=== PATIENT | male | born 1965 | race Caucasian/White ===

== ENCOUNTER 2018-01-01 19:45 | Emergency (ER) | payer BC, OTHER | END 2018-01-01 21:34 | disposition left against medical advice (07) | LOC: DL.ED 19:45 | DX: Z53.21 Procedure and treatment not carried out due to patient leaving prior to being seen by health care provider (principal) ==

== ENCOUNTER 2018-01-02 07:02 | Emergency (ER) | payer BC, OTHER ==
[2018-01-02 08:22] LABS: ANION GAP 13.9
[2018-01-02 09:01] VITALS: BP 107/54
--- NOTE | 2018-01-02 10:00 | EDM.PDOC ---
ED HPI GENERAL MEDICAL PROBLEM - General Chief Complaint: Lower Extremity Injury/Pain Stated Complaint: LEG SWOLLEN [id number] Time Seen by Provider: 01/02/18 07:36 Source of Information: Reports: Patient, RN, RN Notes Reviewed History Limitations: Reports: No Limitations - History of Present Illness INITIAL COMMENTS - FREE TEXT/NARRATIVE: Pt to Er with c/o right leg swelling, warmth, and pain. He states he had a cortisone shot to right knee about 1 month ago. Swelling and redness began after the shot. He was seen in the clinic and an ultrasound was done which was found to be negative. Pain goes up into his groin and hip on the right leg. He states throbbing pain to the right foot. Rates pain 6/10. Admits to fever, chills, diarrhea. Denies N/V, CP, SOB. Onset: Gradual Right Leg Pain Score (Numeric/FACES): 6 - Related Data Allergies Allergy/AdvReac Type Severity Reaction Status Date / Time lisinopril Allergy Cannot Verified 01/02/18 07:11 Remember Home Meds: Home Meds Albuterol Sulfate [Albuterol Sulfate HFA] PRN 08/17/13 [History] Aspirin [Low Dose Aspirin EC] 81 mg PO 08/17/13 [History] Cromolyn Sodium 26 ml NS PRN 08/17/13 [History] Fexofenadine [Penny] 180 mg PO PRN 08/17/13 [History] Fluticasone Propionate 16 gm NS PRN 08/17/13 [History] Ibuprofen 800 mg PO PRN 08/17/13 [History] Insulin Detemir [Levemir] 50 unit SQ 08/17/13 [History] Losartan [Cozaar] 100 mg PO DAILY 08/17/13 [History] Minocycline [Minocin] 100 mg PO BID 08/17/13 [History] Mometasone/Formoterol [Dulera 100 Mcg/5 Mcg Inhaler] 8.8 gm IH PRN 08/17/13 [ History] Montelukast [Singulair] 10 mg PO PRN 08/17/13 [History] Pantoprazole [Protonix] 40 mg PO BID 08/17/13 [History] Pioglitazone HCl [Actos] 45 mg PO 08/17/13 [History] Simvastatin [Zocor] 40 mg PO 08/17/13 [History] Telmisartan [Micardis] 80 mg PO 08/17/13 [History] glyBURIDE [Diabeta] 10 mg PO BID 08/17/13 [History] metFORMIN HCl [Metformin HCl] 500 mg PO BEDTIME 08/17/13 [History] metFORMIN [Glucophage] 1,500 mg PO BRK 08/17/13 [History] Past Medical History HEENT History: Reports: Impaired Vision Cardiovascular History: Reports: Hypertension Respiratory History: Reports: Sleep Apnea Gastrointestinal History: Reports: None Genitourinary History: Reports: None Musculoskeletal History: Reports: None Neurological History: Reports: None Psychiatric History: Reports: None Endocrine/Metabolic History: Reports: Diabetes, Type II Hematologic History: Reports: None Immunologic History: Reports: None Oncologic (Cancer) History: Reports: None Dermatologic History: Reports: None - Infectious Disease History Infectious Disease History: Reports: None Social & Family History - Family History Family Medical History: Noncontributory - Tobacco Use Smoking Status *Q: Never Smoker Second Hand Smoke Exposure: No - Caffeine Use Caffeine Use: Reports: None - Recreational Drug Use Recreational Drug Use: No Review of Systems - Review of Systems Review Of Systems: ROS reveals no pertinent complaints other than HPI. ED EXAM, GENERAL - Physical Exam Exam: See Below Exam Limited By: No Limitations General Appearance: Alert, WD/WN, No Apparent Distress, Obese Eye Exam: Bilateral Eye: EOMI, Normal Inspection Ears: Normal External Exam, Hearing Grossly Normal Nose: Normal Inspection Throat/Mouth: Normal Inspection, Normal Voice, No Airway Compromise Head: Atraumatic, Normocephalic Neck: Normal Inspection, Supple, Non-Tender, Full Range of Motion Respiratory/Chest: No Respiratory Distress, Lungs Clear, Normal Breath Sounds, No Accessory Muscle Use, Chest Non-Tender Cardiovascular: Normal Peripheral Pulses, Regular Rate, Rhythm, No Gallop, No JVD, No Murmur, No Rub Peripheral Pulses: 1+: Dorsalis Pedis (R), 2+: Radial (L), Radial (R), Dorsalis Pedis (L) GI/Abdominal: Normal Bowel Sounds, Soft, Non-Tender (Male) Exam: Deferred Rectal (Males) Exam: Deferred Back Exam: Normal Inspection, Full Range of Motion Extremities: Pedal Edema (right), Joint Swelling (right knee, ankle), Leg Pain ( right groin, thigh, lower leg, foot), Limited Range of Motion (right), Increased Warmth (right), Redness (right) Neurological: Alert, Oriented, Normal Cognition, Normal Gait, Normal Reflexes, No Motor/Sensory Deficits Psychiatric: Normal Affect, Normal Mood Skin Exam: Warm, Dry, Intact, Erythema (right lower leg), Increased Warmth ( right lower leg) Lymphatic: Adenopathy (?? adenopathy to right groin, patient very obese) Course - Vital Signs Last Recorded V/S: Last Vital Signs Temp 99.1 F 01/02/18 09:01 Pulse 86 01/02/18 09:01 Resp 18 01/02/18 09:01 BP 107/54 L 01/02/18 09:01 Pulse Ox 96 01/02/18 09:01 - Orders/Labs/Meds Orders: Active Orders 24 hr Category Date Time Status UA W/MICROSCOPIC [URIN] Stat Lab 01/02/18 10:05 Ordered Labs: Laboratory Tests 01/02/18 01/02/18 01/02/18 Range/Units 07:32 07:52 07:52 WBC 13.4 H (5.0-10.0) 10^3/uL RBC 4.40 L (4.6-6.2) 10^6/uL Hgb 13.4 L (14.0-18.0) g/dL Hct 40.2 (40.0-54.0) % MCV 91.4 D (80-100) fL MCH 30.5 (27.0-34.0) pg MCHC 33.3 (33.0-35.0) g/dL Plt Count 75 L (150-450) 10^3/uL Neut % (Auto) 87.1 H (42.2-75.2) % Lymph % (Auto) 3.7 L (20.5-50.1) % Young % (Auto) 8.8 H (2-8) % Eos % (Auto) 0.3 L (1.0-3.0) % Baso % (Auto) 0.1 (0.0-1.0) % D-Dimer, Quantitative (0-400) ng/mL Sodium 132 L (135-145) mmol/L Potassium 3.9 (3.6-5.0) mmol/L Chloride 100 L (101-111) mmol/L Carbon Dioxide 22.0 (21.0-31.0) mmol/L Anion Gap 13.9 BUN 29 H (7-18) mg/dL Creatinine 1.5 H (0.6-1.3) mg/dL Est Cr Clr Drug Dosing 67.29 mL/min Estimated GFR (MDRD) 49 BUN/Creatinine Ratio 19.33 Glucose 201 H (74-105) mg/dL Lactic Acid (0.5-2.2) mmol/L Calcium 8.5 (8.4-10.2) mg/dl Total Bilirubin 1.2 H (0.2-1.0) mg/dL AST 43 H (10-42) IU/L ALT 33 (10-60) IU/L Alkaline Phosphatase 53 (42-121) IU/L C-Reactive Protein 19.9 H (0.0-1.3) mg/dL Total Protein 7.0 (6.7-8.2) g/dl Albumin 3.4 (3.2-5.5) g/dl Globulin 3.6 Albumin/Globulin Ratio 0.94 01/02/18 01/02/18 Range/Units 07:52 08:50 WBC (5.0-10.0) 10^3/uL RBC (4.6-6.2) 10^6/uL Hgb (14.0-18.0) g/dL Hct (40.0-54.0) % MCV (80-100) fL MCH (27.0-34.0) pg MCHC (33.0-35.0) g/dL Plt Count (150-450) 10^3/uL Neut % (Auto) (42.2-75.2) % Lymph % (Auto) (20.5-50.1) % Young % (Auto) (2-8) % Eos % (Auto) (1.0-3.0) % Baso % (Auto) (0.0-1.0) % D-Dimer, Quantitative 1250 H (0-400) ng/mL Sodium (135-145) mmol/L Potassium (3.6-5.0) mmol/L Chloride (101-111) mmol/L Carbon Dioxide (21.0-31.0) mmol/L Anion Gap BUN (7-18) mg/dL Creatinine (0.6-1.3) mg/dL Est Cr Clr Drug Dosing mL/min Estimated GFR (MDRD) BUN/Creatinine Ratio Glucose (74-105) mg/dL Lactic Acid 2.2 (0.5-2.2) mmol/L Calcium (8.4-10.2) mg/dl Total Bilirubin (0.2-1.0) mg/dL AST (10-42) IU/L ALT (10-60) IU/L Alkaline Phosphatase (42-121) IU/L C-Reactive Protein (0.0-1.3) mg/dL Total Protein (6.7-8.2) g/dl Albumin (3.2-5.5) g/dl Globulin Albumin/Globulin Ratio Departure - Departure Time of Disposition: 09:56 Disposition: DC/Tfer to [facility] 02 Condition: Fair Clinical Impression: Elevated C-reactive protein (CRP), Elevated d-dimer Cellulitis Qualifiers: Site of cellulitis: extremity Site of cellulitis of extremity: lower extremity Laterality: right Qualified Code(s): L03.115 - Cellulitis of right lower limb - Discharge Information *PRESCRIPTION DRUG MONITORING PROGRAM REVIEWED*: No *COPY OF PRESCRIPTION DRUG MONITORING REPORT IN PATIENT RUDDY: No Forms: ED Department Discharge, Interfacility Transfer EMTALA - My Orders Last 24 Hours: My Active Orders 01/02/18 10:05 UA W/MICROSCOPIC [URIN] Stat - Assessment/Plan Last 24 Hours: My Active Orders 01/02/18 10:05 UA W/MICROSCOPIC [URIN] Stat
== END 2018-01-02 10:23 ==
LOC: DL.ED 07:02
DX: L03.115 Cellulitis of right lower limb (principal); R79.82 Elevated C-reactive protein (CRP); R79.1 Abnormal coagulation profile; E11.9 Type 2 diabetes mellitus without complications; I10 Essential (primary) hypertension; Z79.4 Long term (current) use of insulin; Z79.899 Other long term (current) drug therapy; Z88.8 Allergy status to other drugs, medicaments and biological substances; Z79.82 Long term (current) use of aspirin
CPT/HCPCS: 36415; 80053; 81001; 83605; 85025; 85379; 86140; 99285

== ENCOUNTER 2020-01-30 09:27 | Emergency (ER) | payer BC, OTHER ==
[2020-01-30] MEDS ORDERED: Bupivacaine 0.5% 30 ML SDV INFILT ONE (09:50)
[2020-01-30] MEDS ORDERED: Lidocaine 1% 30 ML SDV INJECT ONE (09:50)
[2020-01-30] MEDS ORDERED: Bacitracin Oint 1 GM U/D Packet TOP ONE (09:51)
[2020-01-30 09:54] VITALS: BP 139/54; PULSE 74
--- NOTE | 2020-01-30 10:06 | EDM.PDOC ---
ED HPI GENERAL MEDICAL PROBLEM - General Chief Complaint: Laceration Stated Complaint: KNEE LACERATION Time Seen by Provider: 01/30/20 09:35 Source of Information: Reports: Patient, Old Records, RN, RN Notes Reviewed History Limitations: Reports: No Limitations - History of Present Illness INITIAL COMMENTS - FREE TEXT/NARRATIVE: Pt presents to ER with c/o cut to the right knee. He says he fell onto cement when he tripped over a roll of linoleum cut the right knee. Denies any other injury. Tetanus is up to date per pt. Hx of right knee replacement in July. Bleeding from laceration upon arrival, but easily controlled. Pt is anticoagulated on Xarelto. Onset: Today, Sudden Onset Date: 01/30/20 Onset Time: 09:00 Duration: Constant Location: Reports: Lower Extremity, Right Quality: Reports: Ache Severity: Mild Improves with: Reports: None Worsens with: Reports: None Associated Symptoms: Reports: No Other Symptoms - Related Data Allergies Allergy/AdvReac Type Severity Reaction Status Date / Time lisinopril Allergy Cannot Verified 01/30/20 09:44 Remember Home Meds: Home Meds Albuterol Sulfate [Albuterol Sulfate HFA] PRN 08/17/13 [History] Aspirin [Low Dose Aspirin EC] 81 mg PO 08/17/13 [History] Cromolyn Sodium 26 ml NS PRN 08/17/13 [History] Fexofenadine [Penny] 180 mg PO PRN 08/17/13 [History] Fluticasone Propionate 16 gm NS PRN 08/17/13 [History] Ibuprofen 800 mg PO PRN 08/17/13 [History] Insulin Detemir [Levemir] 50 unit SQ 08/17/13 [History] Losartan [Cozaar] 100 mg PO DAILY 08/17/13 [History] Minocycline [Minocin] 100 mg PO BID 08/17/13 [History] Mometasone/Formoterol [Dulera 100 Mcg/5 Mcg Inhaler] 8.8 gm IH PRN 08/17/13 [History] Montelukast [Singulair] 10 mg PO PRN 08/17/13 [History] Pantoprazole [Protonix] 40 mg PO BID 08/17/13 [History] Pioglitazone HCl [Actos] 45 mg PO 08/17/13 [History] Simvastatin [Zocor] 40 mg PO 08/17/13 [History] Telmisartan [Micardis] 80 mg PO 08/17/13 [History] glyBURIDE [Diabeta] 10 mg PO BID 08/17/13 [History] metFORMIN HCl [Metformin HCl] 500 mg PO BEDTIME 08/17/13 [History] metFORMIN [Glucophage] 1,500 mg PO BRK 08/17/13 [History] Past Medical History HEENT History: Reports: Impaired Vision Cardiovascular History: Reports: Hypertension Respiratory History: Reports: Sleep Apnea Gastrointestinal History: Reports: None Genitourinary History: Reports: None Musculoskeletal History: Reports: None Neurological History: Reports: None Psychiatric History: Reports: None Endocrine/Metabolic History: Reports: Diabetes, Type II, Obesity/BMI 30+ Hematologic History: Reports: None Immunologic History: Reports: None Oncologic (Cancer) History: Reports: None Dermatologic History: Reports: None - Infectious Disease History Infectious Disease History: Reports: None Social & Family History - Family History Family Medical History: Noncontributory - Caffeine Use Caffeine Use: Reports: None - Living Situation & Occupation Living situation: Reports: with Family ED ROS GENERAL - Review of Systems Review Of Systems: Comprehensive ROS is negative, except as noted in HPI. ED EXAM, SKIN/RASH Exam: See Below Exam Limited By: No Limitations General Appearance: Alert, No Apparent Distress, Obese Head: Atraumatic, Normocephalic Neck: Non-Tender, Full Range of Motion Respiratory/Chest: Lungs Clear, Chest Non-Tender, Decreased Breath Sounds Cardiovascular: Regular Rate, Rhythm Back Exam: Normal Inspection Extremities: Normal Range of Motion, Other (11cm linear horizontal laceraton at anterior right knee to depth of subcutaneous fat.). No: Joint Swelling Neurological: Alert, Oriented, No Motor/Sensory Deficits Psychiatric: Normal Mood ED SKIN PROCEDURES - Laceration/Wound Repair Right Anterior Knee Appearance: Subcutaneous, Linear, Clean Anesthetic Type: Local Local Anesthesia - Lidocaine (Xylocaine): 1% Plain (20cc) Local Anesthesia - Bupivicaine (Marcaine): 0.5% Plain (20cc) Skin Prep: Chlorhexidine (Hibiciens), Saline, Sterile Drape Saline Irrigation (cc's): 1,000 Exploration/Debridement/Repair: Wound Explored, In a Bloodless Field, Explored to Base, Minimal Debridement, Minimally Undermined Closed with: Sutures Lac/Wound length In cm: 11 Suture Size: 3-0 # of Sutures: 20 Suture Type: Nylon, Running Drain Placement: No Sterile Dressing Applied: Nurse Tetanus Status Addressed: Yes Complications: No Course - Vital Signs Last Recorded V/S: Last Vital Signs Temp 98.2 F 01/30/20 09:29 Pulse 74 01/30/20 09:29 Resp 16 01/30/20 09:29 BP 139/54 L 01/30/20 09:29 Pulse Ox 98 01/30/20 09:29 - Orders/Labs/Meds Meds: Medications Discontinued Medications Generic Name Dose Route Start Last Admin Trade Name Hailey PRN Reason Stop Dose Admin Bacitracin 1 dose 01/30/20 09:51 01/30/20 10:13 Bacitracin Oint 1 Gm TOP 01/30/20 09:52 1 dose ONETIME ONE Administration Bupivacaine HCl 30 ml 01/30/20 09:50 01/30/20 10:15 Marcaine 0.5% INFILT 01/30/20 09:51 30 ml ONETIME ONE Administration Lidocaine HCl 30 ml 01/30/20 09:50 01/30/20 10:15 Xylocaine-Mpf 1% INJECT 01/30/20 09:51 30 ml ONETIME ONE Administration Departure - Departure Time of Disposition: 11:07 Disposition: Home, Self-Care 01 Condition: Good Clinical Impression: Laceration of right knee Qualifiers: Encounter type: initial encounter Qualified Code(s): S81.011A - Laceration without foreign body, right knee, initial encounter - Discharge Information *PRESCRIPTION DRUG MONITORING PROGRAM REVIEWED*: Not Applicable *COPY OF PRESCRIPTION DRUG MONITORING REPORT IN PATIENT RUDDY: Not Applicable Instructions: Sutured Wound Care, [id number] Forms: ED Department Discharge Additional Instructions: Rx: Cephalexin 500mg Use knee immobilizer, cane, and bend the right knee as little as possible. Follow up in clinic in 10 to 12 days for suture removal. Sepsis Event Note (ED) - Evaluation Sepsis Screening Result: No Definite Risk - Focused Exam Vital Signs: Vital Signs Temp Pulse Resp BP Pulse Ox 01/30/20 09:29 98.2 F 74 16 139/54 L 98
--- NOTE | 2020-01-30 10:54 | CR ---
PROCEDURE INFORMATION: Exam: XR Right Knee Exam date and time: 01/30/2020 9:53 AM Age: 54 years old Clinical indication: Injury or trauma; Fall; Work related; Blunt trauma; Knee; Right; Injury date: 01/30/2020; Prior surgery; Surgery date: 6+ months; Additional info: RT knee injury, fall TECHNIQUE: Imaging protocol: XR Right knee. Views: 1 or 2 views. COMPARISON: No relevant prior studies available. FINDINGS: Bones/joints: A total knee arthroplasty is present. It is in satisfactory position and alignment. No acute fracture is identified. Soft tissues: The soft tissues are not well evaluated anteriorly. The suprapatellar soft tissues appear grossly unremarkable. Vasculature: Atherosclerotic vascular calcifications are noted. IMPRESSION: No acute fracture or dislocation identified, with a satisfactory appearance of a total knee arthroplasty.
== END 2020-01-30 11:27 | disposition home or self-care (01) ==
LOC: DL.ED 09:27
DX: S81.011A Laceration without foreign body, right knee, initial encounter (principal); I10 Essential (primary) hypertension; E11.9 Type 2 diabetes mellitus without complications; E66.9 Obesity, unspecified; Z68.42 Body mass index [BMI] 45.0-49.9, adult; Z79.82 Long term (current) use of aspirin; Z79.4 Long term (current) use of insulin; Z79.899 Other long term (current) drug therapy; Z88.8 Allergy status to other drugs, medicaments and biological substances; Z79.01 Long term (current) use of anticoagulants; W01.198A Fall on same level from slipping, tripping and stumbling with subsequent striking against other object, initial encounter
CPT/HCPCS: 12004; 73560; 99283; J2001; J3490

== ENCOUNTER 2021-02-26 19:31 | Emergency (ER) | payer BC, OTHER ==
--- NOTE | 2021-02-26 21:07 | EDM.PDOC ---
ED HPI GENERAL MEDICAL PROBLEM - General Chief Complaint: Skin Complaint Stated Complaint: TOE OOZING PUSS Time Seen by Provider: 02/26/21 20:49 Source of Information: Reports: Patient, RN History Limitations: Reports: No Limitations - History of Present Illness INITIAL COMMENTS - FREE TEXT/NARRATIVE: ED with c/o increased redness swelling and drainage to right great toe. Onset Thursday. [facility] on started Keflex. Has taken 7 doses per patient. Tonight after work took off shoe and more red swollen and draing. Large blister formed . Diabetic. Usual blood sugars 130-180. No fever. Right Toe-Hailux Pain Score (Numeric/FACES): 4 - Related Data Allergies Allergy/AdvReac Type Severity Reaction Status Date / Time lisinopril Allergy Cannot Verified 02/26/21 19:44 Remember Home Meds: Home Meds Albuterol Sulfate [Albuterol Sulfate HFA] PRN 08/17/13 [History] Cromolyn Sodium 26 ml NS PRN 08/17/13 [History] Fexofenadine [Penny] 180 mg PO PRN 08/17/13 [History] Fluticasone Propionate 16 gm NS PRN 08/17/13 [History] Ibuprofen 800 mg PO PRN 08/17/13 [History] Insulin Detemir [Levemir] 50 unit SQ 08/17/13 [History] Losartan [Cozaar] 100 mg PO DAILY 08/17/13 [History] Minocycline [Minocin] 100 mg PO BID 08/17/13 [History] Montelukast [Singulair] 10 mg PO PRN 08/17/13 [History] Pantoprazole [Protonix] 40 mg PO BID 08/17/13 [History] Simvastatin [Zocor] 40 mg PO 08/17/13 [History] Telmisartan [Micardis] 80 mg PO 08/17/13 [History] glyBURIDE [Diabeta] 10 mg PO BID 08/17/13 [History] metFORMIN HCl [Metformin HCl] 500 mg PO BEDTIME 08/17/13 [History] metFORMIN [Glucophage] 1,500 mg PO BRK 08/17/13 [History] Alogliptin Benzoate [Alogliptin] 25 mg PO DAILY 01/30/20 [History] Furosemide 40 mg PO DAILY 01/30/20 [History] Gabapentin [Neurontin] 600 mg PO TID 01/30/20 [History] Rivaroxaban [Xarelto] 10 mg PO DAILY 01/30/20 [History] cephALEXin [Keflex] 500 mg PO QID 02/26/21 [History] Past Medical History HEENT History: Reports: Impaired Vision Cardiovascular History: Reports: Hypertension Respiratory History: Reports: Sleep Apnea Gastrointestinal History: Reports: None Genitourinary History: Reports: None Musculoskeletal History: Reports: None Neurological History: Reports: None Psychiatric History: Reports: None Endocrine/Metabolic History: Reports: Diabetes, Type II, Obesity/BMI 30+ Hematologic History: Reports: None Immunologic History: Reports: None Oncologic (Cancer) History: Reports: None Dermatologic History: Reports: None - Infectious Disease History Infectious Disease History: Reports: None - Past Surgical History Musculoskeletal Surgical History: Reports: Knee Replacement Other Musculoskeletal Surgeries/Procedures:: Knee Replacement July 2019 Social & Family History - Family History Family Medical History: No Pertinent Family History - Tobacco Use Tobacco Use Status *Q: Never Tobacco User Second Hand Smoke Exposure: No - Caffeine Use Caffeine Use: Reports: Energy Drinks - Recreational Drug Use Recreational Drug Use: No - Living Situation & Occupation Living situation: Reports: with Family ED ROS GENERAL - Review of Systems Review Of Systems: Comprehensive ROS is negative, except as noted in HPI. ED EXAM, SKIN/RASH Exam: See Below Exam Limited By: No Limitations General Appearance: Alert, Mild Distress, Obese Eye Exam: Bilateral Eye: EOMI Ears: Normal External Exam, Hearing Grossly Normal Nose: Normal Inspection Throat/Mouth: Normal Inspection Head: Atraumatic, Normocephalic Neck: Normal Inspection Respiratory/Chest: No Respiratory Distress, Lungs Clear Cardiovascular: Normal Peripheral Pulses, Regular Rate, Rhythm. No: No Edema (2+ right) GI/Abdominal: Normal Bowel Sounds, Soft Back Exam: Full Range of Motion Extremities: Joint Swelling (right great toe), Increased Warmth (right great toe), Redness (right great toe, with yellow purulent drainage beneath nail, large blister below nail, cleansed with betadine and drained with scalple puncture , moderate serous fluid. ) Psychiatric: Normal Affect, Normal Mood Skin: Warm Course - Vital Signs Last Recorded V/S: Last Vital Signs Temp 98.1 F 02/26/21 23:30 Pulse 68 02/26/21 23:30 Resp 20 02/26/21 23:30 BP 118/72 02/26/21 23:30 Pulse Ox 94 L 02/26/21 23:30 - Orders/Labs/Meds Orders: Active Orders 24 hr Category Date Time Status Lower Extremity w Cont Rt [CT] Urgent Exams 02/26/21 21:30 Stop Req CULTURE BLOOD [BC] Stat Lab 02/26/21 20:21 Received CULTURE BLOOD [BC] Stat Lab 02/26/21 20:23 Received CULTURE WOUND [RM] Stat Lab 02/26/21 22:20 Received Blood Culture x2 Reflex Set [OM.PC] Stat Oth 02/26/21 19:54 Ordered Labs: Laboratory Tests 02/26/21 02/26/21 02/26/21 Range/Units 20:21 20:21 20:21 WBC 7.2 (5.0-10.0) 10^3/uL RBC 4.46 L (4.6-6.2) 10^6/uL Hgb 11.9 L D (14.0-18.0) g/dL Hct 38.1 L (40.0-54.0) % MCV 85.4 D (80-100) fL MCH 26.7 L (27.0-34.0) pg MCHC 31.2 L (33.0-35.0) g/dL Plt Count 117 L (150-450) 10^3/uL Neut % (Auto) 69.5 (42.2-75.2) % Lymph % (Auto) 15.7 L (20.5-50.1) % Bradley % (Auto) 10.8 H (2-8) % Eos % (Auto) 3.3 H (1.0-3.0) % Baso % (Auto) 0.7 (0.0-1.0) % Sodium 141 (136-145) mmol/L Potassium 4.2 (3.5-5.1) mmol/L Chloride 104 (98-107) mmol/L Carbon Dioxide 27 (21-32) mmol/L Anion Gap 14.2 H (7-13) mEq/L BUN 18 (7-18) mg/dL Creatinine 0.96 (0.70-1.30) mg/dL Est Cr Clr Drug Dosing 101.47 mL/min Estimated GFR (MDRD) > 60 BUN/Creatinine Ratio 18.8 (No establ ref range) Glucose 189 H (70-99) mg/dL Lactic Acid 1.1 (0.4-2.0) mmol/L Calcium 9.0 (8.5-10.1) mg/dL Total Bilirubin 0.5 (0.2-1.0) mg/dL AST 18 (15-37) U/L ALT 23 (16-63) U/L Alkaline Phosphatase 127 H (46-116) U/L Total Protein 7.7 (6.4-8.2) g/dL Albumin 3.4 (3.4-5.0) g/dL Globulin 4.3 Albumin/Globulin Ratio 0.8 Meds: Medications Discontinued Medications Generic Name Dose Route Start Last Admin Trade Name Freq PRN Reason Stop Dose Admin Vancomycin HCl 1,500 mg/ 500 mls @ 333.333 mls/hr 02/26/21 21:40 02/26/21 21:57 Sodium Chloride IV 02/26/21 23:09 333.333 mls/hr ONETIME ONE Administration - Re-Assessments/Exams Free Text/Narrative Re-Assessment/Exam: 02/27/21 01:58 Xray foot, no osteomyelitis noted. draining. IV vancomycin x 1. Unable to CT lower extremity. Patient determined to heavy for CT table to image safely. Patient to follow in clinic 1-2 days. Departure - Departure Time of Disposition: 23:17 Disposition: Home, Self-Care 01 Condition: Good Clinical Impression: Infected nailbed of toe Qualifiers: Laterality: right Qualified Code(s): L03.031 - Cellulitis of right toe Cellulitis Qualifiers: Site of cellulitis: extremity Site of cellulitis of extremity: lower extremity Laterality: right Qualified Code(s): L03.115 - Cellulitis of right lower limb - Discharge Information *PRESCRIPTION DRUG MONITORING PROGRAM REVIEWED*: Not Applicable *COPY OF PRESCRIPTION DRUG MONITORING REPORT IN PATIENT RUDDY: Not Applicable Instructions: Cellulitis, Adult, Paronychia, [id number] Forms: ED Department Discharge Additional Instructions: elevate extremeity keep blood sugars under good control recheck clinic tomorrow stop keflex clindamycin 150mg two capsules 3 times daily dressing change to foot twice daily and as needed, Sepsis Event Note (ED) - Evaluation Sepsis Screening Result: No Definite Risk - Focused Exam Vital Signs: Vital Signs Temp Pulse Resp BP Pulse Ox 02/26/21 23:30 98.1 F 68 20 118/72 94 L 02/26/21 19:45 98 F 74 20 141/66 H 96 - My Orders Last 24 Hours: My Active Orders 02/26/21 19:54 Blood Culture x2 Reflex Set [OM.PC] Stat 02/26/21 20:21 CULTURE BLOOD [BC] Stat 02/26/21 20:23 CULTURE BLOOD [BC] Stat 02/26/21 21:30 Lower Extremity w Cont Rt [CT] Urgent 02/26/21 22:20 CULTURE WOUND [RM] Stat - Assessment/Plan Last 24 Hours: My Active Orders 02/26/21 19:54 Blood Culture x2 Reflex Set [OM.PC] Stat 02/26/21 20:21 CULTURE BLOOD [BC] Stat 02/26/21 20:23 CULTURE BLOOD [BC] Stat 02/26/21 21:30 Lower Extremity w Cont Rt [CT] Urgent 02/26/21 22:20 CULTURE WOUND [RM] Stat
[2021-02-26 21:08] LABS: ANION GAP 14.2 mEq/L (7-13); CHLORIDE,CL 104 mmol/L (98-107); SODIUM,NA 141 mmol/L (136-145)
--- NOTE | 2021-02-26 22:40 | CR ---
PROCEDURE INFORMATION: Exam: XR Right Foot Exam date and time: 02/26/2021 10:00 PM Age: 55 years old Clinical indication: Other: Toe red swollen draining, diabetic TECHNIQUE: Imaging protocol: XR Right foot. Views: 3 or more views. COMPARISON: No relevant prior studies available. FINDINGS: Bones/joints: The bones appear intact. No acute fracture is identified. There is an old fracture deformity of the 5th digit proximal phalanx. No bone destruction is appreciated. No periosteal reaction is seen. The joints are normally aligned and articulated. There are small plantar and posterior calcaneal spurs. Soft tissues: The soft tissues are diffusely edematous. No soft tissue gas or radiopaque foreign body is identified. Vasculature: Moderate vascular calcifications are noted. IMPRESSION: No radiographic evidence for osteomyelitis.
[2021-02-27 00:26] VITALS: BP 118/72; PULSE 68
== END 2021-02-26 23:40 | disposition home or self-care (01) ==
LOC: DL.ED 19:31
DX: L03.031 Cellulitis of right toe (principal); L03.115 Cellulitis of right lower limb; I10 Essential (primary) hypertension; E11.9 Type 2 diabetes mellitus without complications; E66.9 Obesity, unspecified; Z68.44 Body mass index [BMI] 60.0-69.9, adult; Z88.8 Allergy status to other drugs, medicaments and biological substances; Z79.4 Long term (current) use of insulin
CPT/HCPCS: 36415; 73630; 80053; 83605; 85025; 87040; 87070; 87077; 87186; 96365; 96366; 99283; J3370; J7040

== ENCOUNTER 2021-09-26 16:13 | Emergency (ER) | payer BC, OTHER ==
[2021-09-26 17:12] VITALS: BP 149/70; PULSE 75
[2021-09-26 18:16] LABS: ANION GAP 12.6 mEq/L (7-13); CHLORIDE,CL 105 mmol/L (98-107); ESTIMATED GFR > 60; SODIUM,NA 140 mmol/L (136-145)
[2021-09-26] MEDS ORDERED: Doxycycline Monohydrate 100 MG Cap PO ONE (18:23)
== END 2021-09-26 18:47 | disposition home or self-care (01) ==
LOC: DL.ED 16:13
DX: L03.115 Cellulitis of right lower limb (principal); I10 Essential (primary) hypertension; E11.9 Type 2 diabetes mellitus without complications; E66.9 Obesity, unspecified; Z68.43 Body mass index [BMI] 50.0-59.9, adult; Z88.8 Allergy status to other drugs, medicaments and biological substances; Z79.4 Long term (current) use of insulin; Z79.01 Long term (current) use of anticoagulants
CPT/HCPCS: 36415; 80053; 81003; 83605; 85025; 85379; 87040; 99283; A9270

== ENCOUNTER 2023-03-27 13:08 | Emergency (ER) | payer OTHER ==
[2023-03-27 13:23] VITALS: BP 128/65; PULSE 66
[2023-03-27 13:36] LABS: BASOPHILS PERCENT AUTO 0.2 % (0.0-1.0); EOSINOPHILS PERCENT AUTO 2.3 % (1.0-3.0); HEMATOCRIT 30.7 % (40.0-54.0); HEMOGLOBIN 9.5 g/dL (14.0-18.0); MEAN CORPUSCULAR HEMOGLOBIN 25.1 pg (27.0-34.0); MEAN CORPUSCULAR HGB CONC 30.9 g/dL (33.0-35.0); NEUTROPHILS PERCENT AUTO 79.5 % (42.2-75.2); PLATELET COUNT,PLT 103 10^3/uL (150-450); RED BLOOD CELL COUNT 3.79 10^6/uL (4.6-6.2); WHITE BLOOD CELL COUNT,WBC 8.8 10^3/uL (5.0-10.0)
[2023-03-27 14:30] LABS: ALBUMIN 3.3 g/dL (3.4-5.0); ANION GAP 9.2 mEq/L (7-13); BILIRUBIN TOTAL 0.7 mg/dL (0.2-1.0); BUN/CREATININE RATIO 23.7 (No establ ref range); CALCIUM 8.3 mg/dL (8.5-10.1); CREATININE 1.14 mg/dL (0.70-1.30); EST CRCL DRUG DOSING (CG) 83.39 mL/min; POTASSIUM,K 4.2 mmol/L (3.5-5.1)
[2023-03-27 14:32] LABS: A/G RATIO 0.89
== END 2023-03-27 14:36 | disposition home or self-care (01) ==
LOC: DL.ED 13:08
DX: L03.115 Cellulitis of right lower limb (principal); I10 Essential (primary) hypertension; E78.00 Pure hypercholesterolemia, unspecified; I25.10 Atherosclerotic heart disease of native coronary artery without angina pectoris; K21.9 Gastro-esophageal reflux disease without esophagitis; E11.9 Type 2 diabetes mellitus without complications; E66.9 Obesity, unspecified; Z68.43 Body mass index [BMI] 50.0-59.9, adult; Z86.16 Personal history of COVID-19; Z88.8 Allergy status to other drugs, medicaments and biological substances; Z79.82 Long term (current) use of aspirin; Z79.84 Long term (current) use of oral hypoglycemic drugs; Z79.4 Long term (current) use of insulin; Z79.01 Long term (current) use of anticoagulants; Z79.899 Other long term (current) drug therapy; Z95.5 Presence of coronary angioplasty implant and graft
CPT/HCPCS: 36415; 80053; 85025; 85379; 86140; 93971; 99284

== ENCOUNTER 2023-05-11 08:22 | Emergency (ER) | payer OTHER ==
[2023-05-11 09:20] VITALS: BP 133/62; PULSE 73
[2023-05-11 09:57] LABS: BASOPHILS PERCENT AUTO 0.8 % (0.0-1.0); HEMATOCRIT 29.1 % (40.0-54.0); HEMOGLOBIN 8.8 g/dL (14.0-18.0); LYMPHOCYTES PERCENT AUTO 16.1 % (20.5-50.1); MEAN CORPUSCULAR HEMOGLOBIN 22.9 pg (27.0-34.0); MEAN CORPUSCULAR HGB CONC 30.2 g/dL (33.0-35.0); MEAN CORPUSCULAR VOLUME 75.8 fL (80-100); NEUTROPHILS PERCENT AUTO 68.1 % (42.2-75.2); PLATELET COUNT,PLT 102 10^3/uL (150-450); RED BLOOD CELL COUNT 3.84 10^6/uL (4.6-6.2)
[2023-05-11 10:06] LABS: CALCIUM 8.5 mg/dL (8.5-10.1); CREATININE 0.92 mg/dL (0.70-1.30); EST CRCL DRUG DOSING (CG) 103.33 mL/min
[2023-05-11] MEDS ORDERED: Iopamidol 612 MG/ML 100 ML Bottle IVPUSH ONE (10:19)
== END 2023-05-11 12:55 | disposition home or self-care (01) ==
LOC: DL.ED 08:22
DX: K11.21 Acute sialoadenitis (principal); I10 Essential (primary) hypertension; E78.00 Pure hypercholesterolemia, unspecified; I25.10 Atherosclerotic heart disease of native coronary artery without angina pectoris; K21.9 Gastro-esophageal reflux disease without esophagitis; E11.9 Type 2 diabetes mellitus without complications; E66.9 Obesity, unspecified; Z79.01 Long term (current) use of anticoagulants; Z86.16 Personal history of COVID-19; Z95.5 Presence of coronary angioplasty implant and graft; Z79.82 Long term (current) use of aspirin; Z79.899 Other long term (current) drug therapy; Z79.4 Long term (current) use of insulin; Z88.8 Allergy status to other drugs, medicaments and biological substances; Z68.43 Body mass index [BMI] 50.0-59.9, adult
CPT/HCPCS: 36415; 70491; 80048; 85025; 99284; Q9967

== ENCOUNTER 2024-06-17 12:30 | Emergency (ER) | payer MEDICARE, OTHER ==
[2024-06-17 13:35] LABS: BASOPHILS PERCENT AUTO 0.6 % (0.0-1.0); EOSINOPHILS PERCENT AUTO 2.1 % (1.0-3.0); HEMATOCRIT 46.4 % (40.0-54.0); HEMOGLOBIN 15.8 g/dL (14.0-18.0); LYMPHOCYTES PERCENT AUTO 12.6 % (20.5-50.1); MEAN CORPUSCULAR HEMOGLOBIN 31.3 pg (27.0-34.0); MEAN CORPUSCULAR HGB CONC 34.1 g/dL (33.0-35.0); MEAN CORPUSCULAR VOLUME 92.1 fL (80-100); MONOCYTES PERCENT AUTO 9.2 % (2-8); NEUTROPHILS PERCENT AUTO 75.5 % (42.2-75.2); PLATELET COUNT,PLT 90 10^3/uL (150-450); RED BLOOD CELL COUNT 5.04 10^6/uL (4.6-6.2); WHITE BLOOD CELL COUNT,WBC 6.7 10^3/uL (5.0-10.0)
[2024-06-17 13:53] LABS: ALBUMIN 3.2 g/dL (3.4-5.0); ANION GAP 12.1 mEq/L (7-13); BILIRUBIN TOTAL 0.7 mg/dL (0.2-1.0); BUN/CREATININE RATIO 11.4 (No establ ref range); CREATININE 1.14 mg/dL (0.70-1.30); EST CRCL DRUG DOSING (CG) 75.63 mL/min; POTASSIUM,K 4.1 mmol/L (3.5-5.1); PROTEIN TOTAL,TP 7.2 g/dL (6.4-8.2)
[2024-06-17 13:54] LABS: A/G RATIO 0.8
[2024-06-17 13:59] LABS: PROTHROMBIN TIME 10.5 SEC (9.0-12.0); PTT,PARTIAL THROMBOPLSTIN TIME 28.1 SEC (22.0-34.0)
[2024-06-17 14:47] VITALS: BP 134/69; PULSE 57
== END 2024-06-17 14:35 | disposition home or self-care (01) ==
LOC: DL.ED 12:30
DX: S80.11XA Contusion of right lower leg, initial encounter (principal); I10 Essential (primary) hypertension; E11.9 Type 2 diabetes mellitus without complications; E66.9 Obesity, unspecified; I25.10 Atherosclerotic heart disease of native coronary artery without angina pectoris; E78.00 Pure hypercholesterolemia, unspecified; K21.9 Gastro-esophageal reflux disease without esophagitis; Z88.8 Allergy status to other drugs, medicaments and biological substances; Z79.899 Other long term (current) drug therapy; Z79.82 Long term (current) use of aspirin; Z79.84 Long term (current) use of oral hypoglycemic drugs; Z79.891 Long term (current) use of opiate analgesic; Z68.43 Body mass index [BMI] 50.0-59.9, adult; W54.1XXA Struck by dog, initial encounter
CPT/HCPCS: 36415; 80053; 85025; 85610; 85730; 93971; 99284